=== PATIENT | female | born 1940 | race Caucasian/White ===

== ENCOUNTER → 2018-03-30 | Outpatient (CLI) | payer MEDICARE, OTHER ==
--- NOTE | 2018-03-30 15:55 | 2DMMODE ---
[place] [address] 2 D/M-MODE ECHOCARDIOGRAM Name: BOARD CATCHERFRED Room: [facility]#: [id number] Admission: 03/30/18 Attend Phys: Takedria. TC Quiñones Discharge: Date of : 42 Date of Service: 03/30/18 1555 Report #: [id number] THIS REPORT FOR: //name// APPROVED REPORT Study performed: 03/30/2018 13:05:59 EXAM: Comprehensive 2D, Doppler, and color-flow Echocardiogram Patient Location: Out-Patient Status: routine BSA: 1.86 HR: 58 bpm BP: 150/94 mmHg Rhythm: NSR Other Information Study Quality: Good Indications Dyspnea EDEMA 2D Dimensions IVSd: 9.28 (7-11mm) LVOT Diam: 20.08 (18-24mm) LVDd: 48.58 mm PWd: 8.06 (7-11mm) Ascending Ao: 30.84 (22-36mm) LVDs: 26.11 (25-40mm) Aortic Root: 31.64 mm Volumes Left Atrial Volume (Systole) LA ESV Index: 29.70 mL/m2 Aortic Valve AoV Peak Marlon.: 1.31 m/s AO Peak Gr.: 6.84 mmHg LVOT Max P.43 mmHg AO Mean Gr.: 3.69 mmHg LVOT Mean P.34 mmHg LVOT Max V: 1.17 m/s AO V2 VTI: 30.19 cm LVOT Mean V: 0.69 m/s IAN (VTI): 2.86 cm2 LVOT V1 VTI: 27.29 cm Mitral Valve E/A Ratio: 1.03 MV Decel. Time: 212.45 ms MV E Max Marlon.: 0.97 m/[place] [address] 2 D/M-MODE ECHOCARDIOGRAM Name: FRED ANDRADE Room: [facility]#: [id number] Admission: 03/30/18 Attend Phys: Takedria. HENDRIXP-BC Nuria Discharge: Date of : 42 Date of Service: 03/30/18 1555 Report #: [id number] MV PHT: 61.61 ms MVA (PHT): 3.57 cm2 TDI E/Lateral E': 8.08 E/Medial E': 8.82 Medial E' Marlon.: 0.11 m/s Lateral E' Marlon.: 0.12 m/s Pulmonary Valve PV Peak Marlon.: 0.90 m/s PV Peak Gr.: 3.25 mmHg Tricuspid Valve RAP Estimate: 5.00 mmHg TR Peak Gr.: 20.12 mmHg RVSP: 25.00 mmHg PA Pressure: 25.00 mmHg Left Ventricle The left ventricle is normal size. There is normal LV segmental wall motion. There is normal left ventricular wall thickness. Left ventricular systolic function is normal. The left ventricular ejection fraction is within the normal range. LVEF is 60-65%. The left ventricular diastolic function is normal. Right Ventricle The right ventricle is normal size. The right ventricular systolic function is normal. Atria Left atrium is mildly dilated. The right atrium size is normal. Aortic Valve The aortic valve is normal in structure. No aortic regurgitation is present. There is no aortic valvular stenosis. Mitral Valve The mitral valve is normal in structure. Trace mitral regurgitation. No evidence of mitral valve stenosis. Tricuspid Valve The tricuspid valve is normal in structure. Trace tricuspid regurgitation. [place] [address] 2 D/M-MODE ECHOCARDIOGRAM Name: FRED ANDRADE Room: [facility]#: [id number] Admission: 03/30/18 Attend Phys: KILN TESTER-BC M Discharge: Date of : 42 Date of Service: 03/30/18 1555 Report #: [id number] Pulmonic Valve The pulmonary valve is normal in structure. Mild pulmonic regurgitation. Great Vessels The aortic root is normal in size. IVC is normal in size and collapses >50% with inspiration. Pericardium There is no pericardial effusion. <Conclusion> LVEF is 60-65%. Left atrium is mildly dilated. <ELECTRONICALLY SIGNED> By: Obed Barreto MD, FACC 03/30/18 1555 1555 1555 Obed Barreto MD, FAC /INF
== END ==
LOC: M.CRD 12:46
DX: R06.00 Dyspnea, unspecified (principal); R60.9 Edema, unspecified

== ENCOUNTER → 2018-04-13 | Outpatient (CLI) | payer MEDICARE, OTHER ==
--- NOTE | 2018-04-14 07:55 | PF ---
[address] [address] PULMONARY FUNCTION REPORT Name: FRED ANDRADE Analy Room: [facility]#: [id number] Admission: 04/13/18 Attend Phys: Goldie Ramesh MD Discharge: Date of : 42 Report #: [id number] THIS REPORT FOR: //name// CC: Goldie Ramesh MD DATE OF SERVICE: 04/13/2018 ATTENDING PHYSICIAN: Dr. Goldie Ramesh. Spirometry demonstrates mild obstructive defect. No significant improvement after single dose bronchodilator response. Mid flow rates are mildly diminished. Best result shows an FEV1 of 1.67, FVC of 2.67, ratio 62%. FEV1 is 89% of predicted. FEF 25-75 is 34% of predicted. Lung volumes performed by plethysmography within normal limits. Diffusion within normal limits. IMPRESSION: Abnormalities suggest mild obstructive airways disease. No reversibility on bronchodilator response. No complications to the above procedure. <ELECTRONICALLY SIGNED> By: Janusz Fischer MD 04/14/18 0755 1332 Mike Fischer MD /nt
== END ==
LOC: M.PUL 10:19
DX: R06.00 Dyspnea, unspecified (principal); R06.02 Shortness of breath

== ENCOUNTER → 2019-02-22 | Outpatient (CLI) | payer MEDICARE, OTHER | LOC: M.RAD 11:39 | DX: M25.562 Pain in left knee (principal) ==

== ENCOUNTER → 2020-09-11 | Outpatient (CLI) | payer MEDICARE, OTHER ==
[2020-09-11 13:16] LABS: CREATININE 1.1 mg/dL (0.6-1.3)
== END ==
LOC: M.LAB 12:30 → M.MRI 13:30
PROVIDERS: ATTEND Orthopaedic Surgery
DX: D17.24 Benign lipomatous neoplasm of skin and subcutaneous tissue of left leg (principal)